=== PATIENT | female | born 1960 | race Caucasian/White ===

== ENCOUNTER 2021-05-04 13:57 | Outpatient (CLI) | payer MEDICAID ==
[~2021-05-04 13:57] MED LIST: AMLO5TAB4 PO; INSU100V9 SQ; SYRI-641
== END 2021-05-04 23:59 | disposition home or self-care (01) ==
LOC: CARD DIAG 13:57
PROVIDERS: ATTEND Internal Medicine Hematology
DX: I08.0 Rheumatic disorders of both mitral and aortic valves (principal)
CPT/HCPCS: 93306

== ENCOUNTER 2021-08-25 15:55 | Inpatient (IN) | payer MEDICAID ==
[~2021-08-25] VITALS: Ht 160 cm; Wt 88.2 kg
[2021-08-25] MEDS ORDERED: acetaminophen 325mg tablet PO STA (16:21)
[2021-08-25] MEDS ORDERED: normal saline 1000ML IV soln IV ONE (16:25)
[2021-08-25 16:45] LABS: BASOPHILS % (AUTO) 0.1 % (0-1); EOSINOPHILS % (AUTO) 0 % (0-6); HEMATOCRIT 45.9 % (35.0-45.0); HEMOGLOBIN 15.2 g/dl (12.0-16.0); LYMPHOCYTES # (AUTO) 0.2 X10'3 (1.1-4.8); LYMPHOCYTES % (AUTO) 4.3 % (21-51); MEAN CORPUSCULAR HEMOGLOBIN 25.8 PG (27.0-31.0); MEAN CORPUSCULAR HGB CONC 33.2 g/dL (33.0-36.5); MEAN CORPUSCULAR VOLUME 77.9 FL (78-98); MONOCYTES # (AUTO) 0.5 X10'3 (0-0.9); MONOCYTES % (AUTO) 9.9 % (2-12); NEUTROPHILS # (AUTO) 4.8 X10'3 (1.8-7.7); NEUTROPHILS % (AUTO) 85.7 % (42-75); PLATELET COUNT 246 X10'3 (140-440); RED BLOOD COUNT 5.89 X10'6 (4.20-5.60); RED CELL DISTRIBUTION WIDTH 13.9 % (11.5-14.5); WHITE BLOOD COUNT 5.6 X10'3 (4.5-11.0)
[2021-08-25 17:01] LABS: ALBUMIN 2.6 G/DL (3.4-5.0); ANION GAP 12 (8-16); BILIRUBIN,TOTAL 0.7 MG/DL (0.1-1.0); BLOOD UREA NITROGEN 50 MG/DL (7-18); CALCIUM 7.9 MG/DL (8.5-10.1); CHLORIDE 105 MMOL/L (99-107); CREATININE 1.35 MG/DL (0.40-0.90); GLUCOSE 212 MG/DL (70-104); POTASSIUM 4.8 MMOL/L (3.5-5.1); SODIUM 141 MMOL/L (135-145); TOTAL CARBON DIOXIDE 23.7 MMOL/L (24-32); TOTAL PROTEIN 7.2 G/DL (6.4-8.2); eGFR 40 ML/MIN
[2021-08-25 17:02] LABS: ALANINE AMINOTRANSFERASE 126 U/L (12-78); ALBUMIN/GLOBULIN RATIO 0.6 (1.1-1.5); ALKALINE PHOSPHATASE 246 IU/L (46-116); ASPARTATE AMINO TRANSFERASE 145 U/L (10-37)
[2021-08-25 17:05] LABS: MAGNESIUM 3.3 MG/DL (1.5-2.4)
[2021-08-25 17:11] LABS: D-DIMER 0.47 MG/L FEU (0-0.50)
--- NOTE | 2021-08-25 17:56 | NUR ---
DR. NICHOLAS AT BEDSIDE.
[2021-08-25] MEDS ORDERED: magnesium Cl slow-release 64mg tablet PO PRN (18:05)
[2021-08-25] MEDS ORDERED: PERFLUTREN PROTEIN-A MICROSPHR (Optison) 0.22 MG/ML 3ML VIAL IV ONE (18:05)
[2021-08-25] MEDS ORDERED: magnesium 4gm in 100ml NS 100 ML IV PRN (18:05)
[2021-08-25] MEDS ORDERED: ondansetron/PF 4mg/2ml inj IV PRN (18:05)
[2021-08-25] MEDS ORDERED: magnesium 2GM in 50ml NS 50 ML IV PRN (18:05)
[2021-08-25] MEDS ORDERED: potassium Cl 20 mEq SR tablet PO PRN ×2 (18:05)
[2021-08-25] MEDS ORDERED: morphine 2 MG/ML inj. syringe IV PRN (18:05)
[2021-08-25] MEDS ORDERED: potassium Cl 40MEQ/1/2NS 520ml 520 ML IV PRN ×2 (18:05)
[2021-08-25] MEDS ORDERED: acetaminophen 325mg tablet PO PRN (18:05)
[2021-08-25] MEDS ORDERED: glucagon, human recombinant 1mg kit SUBCUT PRN (18:10)
[2021-08-25] MEDS ORDERED: MESSAGE TO PHARMACY PO ONE (18:10)
[2021-08-25] MEDS ORDERED: dextrose 50%-water 50ml dispensing syringe IV PRN ×2 (18:10)
[2021-08-25] MEDS ORDERED: dextrose ORAL solution 15 GM/59 ML bottle PO PRN ×2 (18:10)
[2021-08-25] MEDS ORDERED: iohexol 350MG/ML 100ml bottle IV ONE (18:13)
[2021-08-25] MEDS ORDERED: albuterol 2.5 MG/3 ML nebule NEB PRN (18:15)
[2021-08-25] MEDS ORDERED: dexamethasone 4mg/ml inj IV ONE (18:35)
[2021-08-25] MEDS ORDERED: REMDESIVIR INJ 200 MG in normal saline 100ml IV soln 60 ML IV ONE (18:35)
[2021-08-25] MEDS ORDERED: LANTUS SQ (18:44)
[2021-08-25] MEDS ORDERED: ERTU5TAB PO (18:44)
[2021-08-25] MEDS ORDERED: LISI30TA4 PO (18:44)
[2021-08-25] MEDS: K and/or MAG REPLACEMENT MC SCH (20:00)
[2021-08-25] MEDS: dexamethasone 4mg/ml inj IV SCH (20:10)
[2021-08-25] MEDS: heparin, porcine 5000 units/ml vial SQ SCH (20:11)
[2021-08-25 20:33] LABS: HEMOGLOBIN A1C 7.7 % (4.5-6.2)
[2021-08-25 21:00] VITALS: BP 114/69
[2021-08-25] MEDS: insulin glargine (Lantus) pen - multi-dose SQ SCH (21:00)
[2021-08-25] MEDS: acetaminophen 325mg tablet PO PRN (23:55)
[2021-08-26 02:00] VITALS: BP 105/60
[2021-08-26 04:31] LABS: ALANINE AMINOTRANSFERASE 113 U/L (12-78); ALBUMIN 2.4 G/DL (3.4-5.0); ALBUMIN/GLOBULIN RATIO 0.6 (1.1-1.5); ALKALINE PHOSPHATASE 238 IU/L (46-116); ANION GAP 12 (8-16); ASPARTATE AMINO TRANSFERASE 109 U/L (10-37); BILIRUBIN,TOTAL 0.5 MG/DL (0.1-1.0); BLOOD UREA NITROGEN 41 MG/DL (7-18); BUN/CREATININE RATIO 42.3 (6.6-38.0); CALCIUM 7.6 MG/DL (8.5-10.1); CHLORIDE 107 MMOL/L (99-107); CHOL/HDL RATIO 2.6 (0.00-4.99); CHOLESTEROL 80 MG/DL (0-200); CREATININE 0.97 MG/DL (0.40-0.90); GLUCOSE 230 MG/DL (70-104); HDL CHOLESTEROL 31 MG/DL (35-60); LDL CHOLESTEROL 35 MG/DL (50-100); MAGNESIUM 3.1 MG/DL (1.5-2.4); POTASSIUM 4.6 MMOL/L (3.5-5.1); SODIUM 140 MMOL/L (135-145); TOTAL PROTEIN 6.7 G/DL (6.4-8.2); TRIGLYCERIDES 76 MG/DL (20-135); eGFR 58 ML/MIN
--- NOTE | 2021-08-26 06:28 | NUR ---
ADMITTED PATIENT TO 401 AT 2100 AND CHECKED HER BG REPORTED TO ME, WHILE IN THE ED HER BG WAS 212. PATIENT DID NOT MEET PROTOCOL, BG WAS 147. PATIENT ORIENTED AND ALERT, THOUGH FATIGUED. MEDICATED X1 WITH TYLENOL AND ZOFRAN THIS INFORMATION OFFICER. REPORT GIVEN TO NIHARIKA FELDER
[2021-08-26 07:38] VITALS: BP 122/73
[2021-08-26 08:11] LABS: BASOPHILS % (AUTO) 0.1 % (0-1); EOSINOPHILS % (AUTO) 0 % (0-6); HEMATOCRIT 45.7 % (35.0-45.0); HEMOGLOBIN 14.8 g/dl (12.0-16.0); LYMPHOCYTES # (AUTO) 0.2 X10'3 (1.1-4.8); LYMPHOCYTES % (AUTO) 4.5 % (21-51); MEAN CORPUSCULAR HEMOGLOBIN 25.6 PG (27.0-31.0); MEAN CORPUSCULAR HGB CONC 32.3 g/dL (33.0-36.5); MEAN CORPUSCULAR VOLUME 79.4 FL (78-98); MEAN PLATELET VOLUME 8.5 FL (7.4-10.4); MONOCYTES # (AUTO) 0.4 X10'3 (0-0.9); MONOCYTES % (AUTO) 7.4 % (2-12); NEUTROPHILS # (AUTO) 4.4 X10'3 (1.8-7.7); PLATELET COUNT 253 X10'3 (140-440); RED BLOOD COUNT 5.76 X10'6 (4.20-5.60); RED CELL DISTRIBUTION WIDTH 13.9 % (11.5-14.5)
[2021-08-26] MEDS: CefTRIAXone 2gm/D5W 50ml BAG 50 ML IV SCH (08:58)
[2021-08-26] MEDS: dexamethasone 4mg/ml inj IV SCH ×2 (08:58→21:55)
[2021-08-26] MEDS: FLU VACC QS2021-22(6MOS UP)/PF 60 MCG/0.5 ML SYRINGE IM ONE (08:59)
[2021-08-26] MEDS: heparin, porcine 5000 units/ml vial SQ SCH ×2 (08:59→21:56)
[2021-08-26] MEDS: pneumococcal 23-VAL P-sac vacc 25 mcg/0.5ml vial IMVAC ONE (09:01)
[2021-08-26] MEDS: K and/or MAG REPLACEMENT MC SCH ×2 (09:05→18:57)
--- NOTE | 2021-08-26 10:31 | NUR ---
Noted pt with T2DM with A1c 7.7%. Pt presented with c/o SOB and positive for COVID on admit, currently in airborne precautions. Pt would benefit from DM education once more stable. Will continue to follow. Addendum: 08/26/21 at [address] Amended: Links added.
[2021-08-26] MEDS: insulin Lispro (HumaLOG) vial - multi-dose SQ SCH ×2 (13:56→21:52)
[2021-08-26 15:59] VITALS: BP 103/68
[2021-08-26 16:46] LABS: ABG BASE EXCESS -2.9 mmol/L (-2.0-2.0); ABG HCO3 20.5 mmol/L (22.0-26.0); ABG OXYGEN SATURATION 90.4 % (94-97); ABG PO2 (T) 56.6 mmHg (75.0-100.0); ALLEN'S TEST POSITIVE; FLOW 15 L/min; FMetHb 0.2 % (0.0-1.5); FO2Hb 90.2 % (94-97); TOTAL HEMOGLOBIN 14.5 G/dl (12.0-16.0)
[2021-08-26] MEDS: lactobacillus rhamnosus 10,000 MMU CELLS/CAPSULE PO SCH (20:00)
[2021-08-26] MEDS: insulin glargine (Lantus) pen - multi-dose SQ SCH (21:53)
[2021-08-26] MEDS: REMDESIVIR 100 MG in NS 100ml IVPB IV SCH (21:54)
[2021-08-26 22:00] VITALS: BP 138/72
[2021-08-27 02:00] VITALS: BP 101/61
[2021-08-27 06:00] VITALS: BP 125/62
--- NOTE | 2021-08-27 06:52 | NUR ---
Patient in room [facility]TH[facility] 4017. I have received report from BRADFORD NOBLE and had the opportunity to ask questions and assume patient care.
[2021-08-27 07:45] LABS: BASOPHILS % (AUTO) 0.1 % (0-1); EOSINOPHILS % (AUTO) 0 % (0-6); HEMATOCRIT 43.1 % (35.0-45.0); HEMOGLOBIN 13.8 g/dl (12.0-16.0); LYMPHOCYTES # (AUTO) 0.2 X10'3 (1.1-4.8); MEAN CORPUSCULAR HEMOGLOBIN 25.5 PG (27.0-31.0); MEAN CORPUSCULAR VOLUME 79.6 FL (78-98); MEAN PLATELET VOLUME 8.5 FL (7.4-10.4); MONOCYTES # (AUTO) 0.4 X10'3 (0-0.9); MONOCYTES % (AUTO) 6.1 % (2-12); NEUTROPHILS # (AUTO) 5.4 X10'3 (1.8-7.7); NEUTROPHILS % (AUTO) 89.8 % (42-75); PLATELET COUNT 295 X10'3 (140-440); RED BLOOD COUNT 5.41 X10'6 (4.20-5.60)
[2021-08-27 07:52] LABS: ALANINE AMINOTRANSFERASE 78 U/L (12-78); ALBUMIN 2.2 G/DL (3.4-5.0); ALBUMIN/GLOBULIN RATIO 0.5 (1.1-1.5); ALKALINE PHOSPHATASE 235 IU/L (46-116); ANION GAP 9 (8-16); ASPARTATE AMINO TRANSFERASE 42 U/L (10-37); BILIRUBIN,TOTAL 0.4 MG/DL (0.1-1.0); BLOOD UREA NITROGEN 36 MG/DL (7-18); BUN/CREATININE RATIO 37.9 (6.6-38.0); CALCIUM 8.1 MG/DL (8.5-10.1); CHLORIDE 107 MMOL/L (99-107); CREATININE 0.95 MG/DL (0.40-0.90); GLUCOSE 297 MG/DL (70-104); MAGNESIUM 3.1 MG/DL (1.5-2.4); POTASSIUM 4.6 MMOL/L (3.5-5.1); SODIUM 137 MMOL/L (135-145); TOTAL CARBON DIOXIDE 20.7 MMOL/L (24-32); TOTAL PROTEIN 6.4 G/DL (6.4-8.2); eGFR 60 ML/MIN
[2021-08-27] MEDS: dexamethasone 4mg/ml inj IV SCH ×2 (07:54→21:02)
[2021-08-27] MEDS: CefTRIAXone 2gm/D5W 50ml BAG 50 ML IV SCH (07:54)
[2021-08-27] MEDS: heparin, porcine 5000 units/ml vial SQ SCH ×2 (07:55→21:01)
[2021-08-27] MEDS: lactobacillus rhamnosus 10,000 MMU CELLS/CAPSULE PO SCH ×2 (07:56→21:03)
[2021-08-27] MEDS: K and/or MAG REPLACEMENT MC SCH ×2 (08:00→20:00)
[2021-08-27] MEDS: acetaminophen 325mg tablet PO PRN ×3 (09:07→21:30)
[2021-08-27] MEDS: insulin Lispro (HumaLOG) vial - multi-dose SQ SCH ×3 (09:11→21:24)
[2021-08-27 10:00] VITALS: BP 131/60
[2021-08-27 14:00] VITALS: BP 131/65
[2021-08-27 18:00] VITALS: BP 132/69
--- NOTE | 2021-08-27 18:51 | NUR ---
Problems reprioritized. Patient report given, questions answered & plan of care reviewed with BRADFORD BISHOP.
[2021-08-27] MEDS: insulin glargine (Lantus) pen - multi-dose SQ SCH (21:23)
[2021-08-27 22:00] VITALS: BP 138/79
[2021-08-27] MEDS: REMDESIVIR 100 MG in NS 100ml IVPB IV SCH (23:27)
[2021-08-28 02:00] VITALS: BP 123/73
[2021-08-28] MEDS: acetaminophen 325mg tablet PO PRN ×3 (05:42→20:01)
--- NOTE | 2021-08-28 06:27 | NUR ---
Patient in room [facility]TH[facility] 4017. I have received report from Emmanuel FELDER and had the opportunity to ask questions and assume patient care.
[2021-08-28] MEDS: dexamethasone 4mg/ml inj IV SCH ×2 (07:03→19:57)
[2021-08-28] MEDS: lactobacillus rhamnosus 10,000 MMU CELLS/CAPSULE PO SCH ×2 (07:03→19:58)
[2021-08-28] MEDS: CefTRIAXone 2gm/D5W 50ml BAG 50 ML IV SCH (07:03)
[2021-08-28] MEDS: heparin, porcine 5000 units/ml vial SQ SCH ×2 (07:03→19:58)
[2021-08-28 07:34] LABS: BASOPHILS % (AUTO) 0 % (0-1); EOSINOPHILS % (AUTO) 0 % (0-6); HEMATOCRIT 40.9 % (35.0-45.0); HEMOGLOBIN 13.7 g/dl (12.0-16.0); LYMPHOCYTES # (AUTO) 0.2 X10'3 (1.1-4.8); MEAN CORPUSCULAR HEMOGLOBIN 25.9 PG (27.0-31.0); MEAN CORPUSCULAR HGB CONC 33.6 g/dL (33.0-36.5); MEAN CORPUSCULAR VOLUME 77.1 FL (78-98); MEAN PLATELET VOLUME 8.3 FL (7.4-10.4); MONOCYTES # (AUTO) 0.4 X10'3 (0-0.9); MONOCYTES % (AUTO) 5.3 % (2-12); NEUTROPHILS # (AUTO) 7.4 X10'3 (1.8-7.7); NEUTROPHILS % (AUTO) 91.7 % (42-75); PLATELET COUNT 340 X10'3 (140-440); RED CELL DISTRIBUTION WIDTH 13.7 % (11.5-14.5); WHITE BLOOD COUNT 8.1 X10'3 (4.5-11.0)
[2021-08-28 07:38] VITALS: BP 118/70
[2021-08-28 07:42] LABS: D-DIMER 0.51 MG/L FEU (0-0.50)
[2021-08-28] MEDS: K and/or MAG REPLACEMENT MC SCH ×2 (08:00→20:00)
[2021-08-28 08:06] LABS: ALANINE AMINOTRANSFERASE 71 U/L (12-78); ALBUMIN 2.2 G/DL (3.4-5.0); ALBUMIN/GLOBULIN RATIO 0.5 (1.1-1.5); ALKALINE PHOSPHATASE 266 IU/L (46-116); ANION GAP 11 (8-16); ASPARTATE AMINO TRANSFERASE 40 U/L (10-37); BILIRUBIN,TOTAL 0.5 MG/DL (0.1-1.0); BLOOD UREA NITROGEN 32 MG/DL (7-18); BUN/CREATININE RATIO 34.4 (6.6-38.0); C-REACTIVE PROTEIN 3.62 MG/DL (0.0-0.5); CALCIUM 7.9 MG/DL (8.5-10.1); CHLORIDE 107 MMOL/L (99-107); CREATININE 0.93 MG/DL (0.40-0.90); GLUCOSE 332 MG/DL (70-104); LACTATE DEHYDROGENASE 310 U/L (81-234); MAGNESIUM 2.7 MG/DL (1.5-2.4); PHOSPHORUS 3.6 MG/DL (2.3-4.5); POTASSIUM 4.8 MMOL/L (3.5-5.1); SODIUM 140 MMOL/L (135-145); TOTAL CARBON DIOXIDE 21.6 MMOL/L (24-32); TOTAL PROTEIN 6.3 G/DL (6.4-8.2); eGFR 61 ML/MIN
[2021-08-28] MEDS: insulin Lispro (HumaLOG) vial - multi-dose SQ SCH ×4 (08:53→20:39)
[2021-08-28 11:19] VITALS: BP 114/54
--- NOTE | 2021-08-28 13:52 | NUR ---
Initial: Pt admit DX COVID-19, PNA, ARDS, respiratory failure, severe hepatic steatosis, HTN, and DM per EMR. Hx T2DM A1C 7.7% not appropriate for ed at this time. PO ~42% avg carb controlled meals overall though 75% dinner last night partially meeting needs. ABRAM recommends Glucerna TIDWM for additional protein/kcals; MD notified. LBM 08/24; ABRAM d/w RN regarding routine bowel care if MD agreeable. Will continue to monitor. Rec: 1. continue carb controlled diet; encourage PO 2. Glucerna TIDWM; pending MD verification in EMR 3. routine bowel care 4. scaled wt this admit; subsequent weekly wts Addendum: 08/28/21 at [address] Amended: Links added.
--- NOTE | 2021-08-28 14:43 | NUR ---
Provided and educated on insentive spirometer. Patient sitting up in high back chair at this time.
--- NOTE | 2021-08-28 15:31 | NUR ---
Helped patient back to bed from sitting in chair. Respiratory had turned patient down to 13 liters on high flow salter but while ambulating she desaturated so i turned her back up to 15 liters.
--- NOTE | 2021-08-28 18:37 | NUR ---
Problems reprioritized. Patient report given, questions answered & plan of care reviewed with Jyothi FELDER.
[2021-08-28] MEDS: insulin glargine (Lantus) pen - multi-dose SQ SCH (20:38)
[2021-08-28] MEDS: REMDESIVIR 100 MG in NS 100ml IVPB IV SCH (20:42)
[2021-08-28 22:00] VITALS: BP 130/99
[2021-08-29 02:00] VITALS: BP 142/80
[2021-08-29] MEDS: acetaminophen 325mg tablet PO PRN (02:36)
[2021-08-29 06:00] VITALS: BP 134/75
--- NOTE | 2021-08-29 06:32 | NUR ---
Patient in room [facility]TH[facility] 4017. I have received report from SURG/PUBLICATION SPECIALIST and had the opportunity to ask questions and assume patient care.
[2021-08-29] MEDS: CefTRIAXone 2gm/D5W 50ml BAG 50 ML IV SCH (07:33)
[2021-08-29] MEDS: dexamethasone 4mg/ml inj IV SCH ×2 (07:35→19:19)
[2021-08-29] MEDS: lactobacillus rhamnosus 10,000 MMU CELLS/CAPSULE PO SCH ×2 (07:45→19:21)
[2021-08-29] MEDS: heparin, porcine 5000 units/ml vial SQ SCH ×2 (07:45→19:21)
[2021-08-29] MEDS: HYDROcodone/acetaminophen 5mg/325mg tablet PO PRN ×2 (07:47→15:58)
[2021-08-29 07:50] LABS: BASOPHILS % (AUTO) 0.1 % (0-1); EOSINOPHILS % (AUTO) 0 % (0-6); HEMATOCRIT 41.6 % (35.0-45.0); HEMOGLOBIN 13.6 g/dl (12.0-16.0); LYMPHOCYTES # (AUTO) 0.3 X10'3 (1.1-4.8); LYMPHOCYTES % (AUTO) 3.1 % (21-51); MEAN CORPUSCULAR HEMOGLOBIN 25.5 PG (27.0-31.0); MEAN CORPUSCULAR HGB CONC 32.7 g/dL (33.0-36.5); MEAN CORPUSCULAR VOLUME 78.2 FL (78-98); MEAN PLATELET VOLUME 8.3 FL (7.4-10.4); MONOCYTES # (AUTO) 0.5 X10'3 (0-0.9); MONOCYTES % (AUTO) 5.1 % (2-12); NEUTROPHILS # (AUTO) 9.3 X10'3 (1.8-7.7); NEUTROPHILS % (AUTO) 91.7 % (42-75); PLATELET COUNT 381 X10'3 (140-440); RED BLOOD COUNT 5.33 X10'6 (4.20-5.60); RED CELL DISTRIBUTION WIDTH 13.5 % (11.5-14.5); WHITE BLOOD COUNT 10.2 X10'3 (4.5-11.0)
[2021-08-29] MEDS: K and/or MAG REPLACEMENT MC SCH ×2 (08:00→19:31)
[2021-08-29 08:22] LABS: ALANINE AMINOTRANSFERASE 92 U/L (12-78); ALBUMIN 2.3 G/DL (3.4-5.0); ALBUMIN/GLOBULIN RATIO 0.6 (1.1-1.5); ALKALINE PHOSPHATASE 295 IU/L (46-116); ANION GAP 10 (8-16); ASPARTATE AMINO TRANSFERASE 71 U/L (10-37); BILIRUBIN,TOTAL 0.5 MG/DL (0.1-1.0); BLOOD UREA NITROGEN 26 MG/DL (7-18); BUN/CREATININE RATIO 35.6 (6.6-38.0); C-REACTIVE PROTEIN 1.86 MG/DL (0.0-0.5); CHLORIDE 109 MMOL/L (99-107); CREATININE 0.73 MG/DL (0.40-0.90); GLUCOSE 147 MG/DL (70-104); LACTATE DEHYDROGENASE 520 U/L (81-234); MAGNESIUM 2.6 MG/DL (1.5-2.4); PHOSPHORUS 3.3 MG/DL (2.3-4.5); POTASSIUM 4.7 MMOL/L (3.5-5.1); SODIUM 142 MMOL/L (135-145); TOTAL CARBON DIOXIDE 22.6 MMOL/L (24-32); TOTAL PROTEIN 6.2 G/DL (6.4-8.2); eGFR 81 ML/MIN
[2021-08-29 09:44] LABS: D-DIMER 0.35 MG/L FEU (0-0.50)
[2021-08-29 10:00] VITALS: BP 125/78
[2021-08-29] MEDS: insulin Lispro (HumaLOG) vial - multi-dose SQ SCH ×4 (10:46→23:05)
[2021-08-29 11:45] LABS: GAMMA GLUTAMLY TRANSPEPTIDASE 261 IU/L (0-60); HEP B CORE AB, TOT Negative (Negative); HEPATITIS C ANTIBODY <0.1 s/co ratio (0.0-0.9)
[2021-08-29 14:00] VITALS: BP 124/71
--- NOTE | 2021-08-29 15:48 | NUR ---
Page Sent PAGER ID: [phone] MESSAGE: KIMBERLYN 8540-RE: JAYDEN DUNN [id number]...PT REPORTING FACIAL MAXILLARY/JAW PAIN...[employer] MINIMAL HELP
[2021-08-29 18:00] VITALS: BP 129/78
--- NOTE | 2021-08-29 18:30 | NUR ---
Problems reprioritized. Patient report given, questions answered & plan of care reviewed with BRADFORD RUSH.
[2021-08-29] MEDS: REMDESIVIR 100 MG in NS 100ml IVPB IV SCH (19:21)
[2021-08-29] MEDS: insulin glargine (Lantus) pen - multi-dose SQ SCH (23:07)
[2021-08-30] MEDS: acetaminophen 325mg tablet PO PRN (02:40)
--- NOTE | 2021-08-30 06:29 | NUR ---
Problems reprioritized. Patient report given, questions answered & plan of care reviewed with Lj.
[2021-08-30 07:13] VITALS: BP 155/72
[2021-08-30] MEDS: K and/or MAG REPLACEMENT MC SCH ×2 (08:00→20:00)
[2021-08-30] MEDS: CefTRIAXone 2gm/D5W 50ml BAG 50 ML IV SCH (08:11)
[2021-08-30] MEDS: dexamethasone 4mg/ml inj IV SCH ×2 (08:11→19:33)
[2021-08-30] MEDS: lactobacillus rhamnosus 10,000 MMU CELLS/CAPSULE PO SCH ×2 (08:11→19:34)
[2021-08-30] MEDS: heparin, porcine 5000 units/ml vial SQ SCH ×2 (08:12→19:35)
[2021-08-30] MEDS: insulin Lispro (HumaLOG) vial - multi-dose SQ SCH ×3 (08:15→21:02)
[2021-08-30 08:42] LABS: BASOPHILS % (AUTO) 0.1 % (0-1); EOSINOPHILS % (AUTO) 0 % (0-6); HEMOGLOBIN 14.5 g/dl (12.0-16.0); LYMPHOCYTES # (AUTO) 0.4 X10'3 (1.1-4.8); LYMPHOCYTES % (AUTO) 2.3 % (21-51); MEAN CORPUSCULAR HEMOGLOBIN 25.4 PG (27.0-31.0); MEAN CORPUSCULAR HGB CONC 32.3 g/dL (33.0-36.5); MEAN CORPUSCULAR VOLUME 78.5 FL (78-98); MEAN PLATELET VOLUME 8.1 FL (7.4-10.4); MONOCYTES # (AUTO) 0.8 X10'3 (0-0.9); MONOCYTES % (AUTO) 5.1 % (2-12); NEUTROPHILS # (AUTO) 14.3 X10'3 (1.8-7.7); NEUTROPHILS % (AUTO) 92.5 % (42-75); PLATELET COUNT 508 X10'3 (140-440); RED BLOOD COUNT 5.73 X10'6 (4.20-5.60); RED CELL DISTRIBUTION WIDTH 13.6 % (11.5-14.5); WHITE BLOOD COUNT 15.5 X10'3 (4.5-11.0)
[2021-08-30 08:52] LABS: ALANINE AMINOTRANSFERASE 95 U/L (12-78); ALBUMIN 2.5 G/DL (3.4-5.0); ALBUMIN/GLOBULIN RATIO 0.6 (1.1-1.5); ALKALINE PHOSPHATASE 319 IU/L (46-116); ANION GAP 8 (8-16); ASPARTATE AMINO TRANSFERASE 33 U/L (10-37); BILIRUBIN,TOTAL 0.6 MG/DL (0.1-1.0); BLOOD UREA NITROGEN 25 MG/DL (7-18); BUN/CREATININE RATIO 32.9 (6.6-38.0); C-REACTIVE PROTEIN 1.22 MG/DL (0.0-0.5); CALCIUM 8.1 MG/DL (8.5-10.1); CHLORIDE 103 MMOL/L (99-107); CREATININE 0.76 MG/DL (0.40-0.90); GLUCOSE 218 MG/DL (70-104); LACTATE DEHYDROGENASE 277 U/L (81-234); MAGNESIUM 2.5 MG/DL (1.5-2.4); PHOSPHORUS 3.3 MG/DL (2.3-4.5); POTASSIUM 4.2 MMOL/L (3.5-5.1); SODIUM 134 MMOL/L (135-145); TOTAL CARBON DIOXIDE 22.6 MMOL/L (24-32); TOTAL PROTEIN 6.8 G/DL (6.4-8.2); eGFR 77 ML/MIN
[2021-08-30 08:54] LABS: D-DIMER 0.36 MG/L FEU (0-0.50)
[2021-08-30 11:15] VITALS: BP 114/70
[2021-08-30 15:55] VITALS: BP 131/78
[2021-08-30 18:00] VITALS: BP 138/84
[2021-08-30] MEDS: insulin glargine (Lantus) pen - multi-dose SQ SCH (21:01)
[2021-08-30 22:00] VITALS: BP 121/85
[2021-08-31] MEDS: acetaminophen 325mg tablet PO PRN (01:27)
[2021-08-31 06:46] VITALS: BP 126/73
[2021-08-31 08:00] LABS: D-DIMER 0.25 MG/L FEU (0-0.50)
[2021-08-31] MEDS: K and/or MAG REPLACEMENT MC SCH ×2 (08:00→20:00)
[2021-08-31] MEDS: dexamethasone 4mg/ml inj IV SCH ×2 (08:29→20:24)
[2021-08-31] MEDS: CefTRIAXone 2gm/D5W 50ml BAG 50 ML IV SCH (08:30)
[2021-08-31] MEDS: heparin, porcine 5000 units/ml vial SQ SCH ×2 (08:30→20:23)
[2021-08-31] MEDS: lactobacillus rhamnosus 10,000 MMU CELLS/CAPSULE PO SCH ×2 (08:30→20:24)
[2021-08-31] MEDS: insulin Lispro (HumaLOG) vial - multi-dose SQ SCH ×3 (08:37→19:20)
[2021-08-31 08:41] LABS: C-REACTIVE PROTEIN 1.04 MG/DL (0.0-0.5); MAGNESIUM 2.6 MG/DL (1.5-2.4); PHOSPHORUS 3.6 MG/DL (2.3-4.5)
[2021-08-31 10:51] VITALS: BP 139/79
--- NOTE | 2021-08-31 11:56 | NUR ---
DM consult: A1C 7.7 continues on airborne precautions. Written DM education w/ RD contact info mailed to Pt's address provided in EMR. Addendum: 08/31/21 at [address] Amended: Links added.
[2021-08-31 15:31] VITALS: BP 141/72
[2021-08-31 18:00] VITALS: BP 152/93
[2021-08-31] MEDS: NUT.TX.GLUC.INTOLER,LAC-FR,SOY (GLUCERNA) 237 ML PO SCH (18:00)
--- NOTE | 2021-08-31 18:36 | NUR ---
Patient in room [facility]TH[facility] 4017. I have received report from Lj FELDER and had the opportunity to ask questions and assume patient care.
[2021-08-31] MEDS: insulin glargine (Lantus) pen - multi-dose SQ SCH (21:18)
[2021-08-31 22:00] VITALS: BP 155/92
[2021-09-01] MEDS: acetaminophen 325mg tablet PO PRN (00:33)
--- NOTE | 2021-09-01 00:42 | NUR ---
Patient feeling shakey and has a headache. Patient states, "Your giving me too much insulin." Blood sugar taken, results 138. Educated on insulin and our protocol. Patient resistive to all education and very upset with nursing staff.
[2021-09-01 02:00] VITALS: BP 121/79
--- NOTE | 2021-09-01 03:00 | NUR ---
I have reviewed and agree with all medications administered and interventions performed by Student Shantal
[2021-09-01 06:00] VITALS: BP 133/73
--- NOTE | 2021-09-01 06:41 | NUR ---
Problems reprioritized. Patient report given, questions answered & plan of care reviewed with Silvia FELDER.
--- NOTE | 2021-09-01 07:03 | NUR ---
Patient in room [facility]TH[facility] 4017. I have received report from Love FELDER and had the opportunity to ask questions and assume patient care.
[2021-09-01] MEDS: K and/or MAG REPLACEMENT MC SCH ×2 (08:00→19:23)
[2021-09-01] MEDS: NUT.TX.GLUC.INTOLER,LAC-FR,SOY (GLUCERNA) 237 ML PO SCH ×3 (08:00→18:32)
[2021-09-01] MEDS: heparin, porcine 5000 units/ml vial SQ SCH ×2 (08:27→19:22)
[2021-09-01] MEDS: CefTRIAXone 2gm/D5W 50ml BAG 50 ML IV SCH (08:27)
[2021-09-01] MEDS: dexamethasone 4mg/ml inj IV SCH ×2 (08:28→19:22)
[2021-09-01] MEDS: lactobacillus rhamnosus 10,000 MMU CELLS/CAPSULE PO SCH ×2 (08:29→19:22)
[2021-09-01] MEDS: insulin Lispro (HumaLOG) vial - multi-dose SQ SCH ×4 (08:59→21:19)
--- NOTE | 2021-09-01 09:02 | NUR ---
Breakfast: Patient ate 37 grams carbs and blood glucose of 225, Level 6 would require 26u Humalog, but despite diabetic and hyper/hypoglycemic education, pt refused full Humalog dose, stating she would only agree to 14u for the blood glucose of 225. [employer] dynamics consultant aware. aware. Will continue to monitor.
[2021-09-01 09:37] LABS: D-DIMER 0.29 MG/L FEU (0-0.50)
[2021-09-01 09:59] LABS: C-REACTIVE PROTEIN 0.75 MG/DL (0.0-0.5); MAGNESIUM 2.3 MG/DL (1.5-2.4); PHOSPHORUS 3.8 MG/DL (2.3-4.5)
[2021-09-01 10:00] VITALS: BP 145/79
--- NOTE | 2021-09-01 13:52 | NUR ---
Lunch: Patient ate 56 grams carbs and blood glucose of 261, but despite diabetic and hyper/hypoglycemic education, pt refused full Humalog dose, stating she would only agree to 18u for the blood glucose of 261. Pt states "I know my body and I don't want all that Humalog". public health inspector aware. MD aware. Will continue to monitor.
[2021-09-01 14:00] VITALS: BP 128/91
[2021-09-01 18:00] VITALS: BP 146/87
--- NOTE | 2021-09-01 18:16 | NUR ---
Problems reprioritized. Patient report given, questions answered & plan of care reviewed with Love FELDER.
--- NOTE | 2021-09-01 18:17 | NUR ---
Patient in room [facility]TH[facility] 4017. I have received report from Silvia FELDER and had the opportunity to ask questions and assume patient care.
--- NOTE | 2021-09-01 18:35 | NUR ---
Patients dinner blood sugar 276 and ate 39 carbs, should receive 32 units of Humalog. Patient refusing full dose and says she will only take 15 units. Sent page to .
[2021-09-01] MEDS ORDERED: insulin Lispro (HumaLOG) vial - multi-dose SQ ONE (19:15)
[2021-09-01] MEDS: insulin glargine (Lantus) pen - multi-dose SQ SCH (21:18)
[2021-09-01 22:00] VITALS: BP 155/101
[2021-09-02] MEDS: acetaminophen 325mg tablet PO PRN ×3 (00:53→21:38)
[2021-09-02 02:00] VITALS: BP 136/84
[2021-09-02 06:00] VITALS: BP 132/75
--- NOTE | 2021-09-02 06:30 | NUR ---
Patient in room [facility]TH[facility] 4017. I have received report from Love FELDER and had the opportunity to ask questions and assume patient care.
--- NOTE | 2021-09-02 06:35 | NUR ---
Problems reprioritized. Patient report given, questions answered & plan of care reviewed with Samantha FELDER.
[2021-09-02] MEDS: lactobacillus rhamnosus 10,000 MMU CELLS/CAPSULE PO SCH ×2 (07:39→19:46)
[2021-09-02] MEDS: dexamethasone 4mg/ml inj IV SCH ×2 (07:39→19:47)
[2021-09-02] MEDS: CefTRIAXone 2gm/D5W 50ml BAG 50 ML IV SCH (07:39)
[2021-09-02] MEDS: heparin, porcine 5000 units/ml vial SQ SCH ×2 (07:45→19:46)
--- NOTE | 2021-09-02 07:58 | NUR ---
Patient requested not to get the flu shot and pneumococcal vaccine today as she said "I just feel crappy today!" Patient applied warm towel on her face while I was in her room but she removed her oxygen nasal cannula. Patient's O2 sat dropped as low as 81%, patient was advised not to do it but to keep her oxygen on all the time. Assisted patient in reapplying nasal cannula back to her nostrils, she verbalized understanding of instruction not to remove her oxygen nasal cannula to prevent low O2 sat level.
[2021-09-02] MEDS: K and/or MAG REPLACEMENT MC SCH ×2 (08:00→19:47)
[2021-09-02] MEDS: NUT.TX.GLUC.INTOLER,LAC-FR,SOY (GLUCERNA) 237 ML PO SCH ×3 (08:00→18:44)
[2021-09-02] MEDS: insulin Lispro (HumaLOG) vial - multi-dose SQ SCH ×4 (09:19→21:33)
--- NOTE | 2021-09-02 09:19 | NUR ---
Patient did not want to received 20 units of Humalog for her blood sugar of 159 mg/dl. She only permitted me to give her 13 units of Humalog. She states "Anything over 13 units, I will refuse it. I told her were going to address this to the doctor when he makes round.
[2021-09-02 10:00] VITALS: BP 125/75
[2021-09-02 11:38] LABS: BASOPHILS % (AUTO) 0.1 % (0-1); EOSINOPHILS % (AUTO) 0 % (0-6); HEMATOCRIT 41.3 % (35.0-45.0); HEMOGLOBIN 13.5 g/dl (12.0-16.0); LYMPHOCYTES # (AUTO) 0.2 X10'3 (1.1-4.8); LYMPHOCYTES % (AUTO) 1.3 % (21-51); MEAN CORPUSCULAR HEMOGLOBIN 25.6 PG (27.0-31.0); MEAN CORPUSCULAR HGB CONC 32.7 g/dL (33.0-36.5); MEAN CORPUSCULAR VOLUME 78.4 FL (78-98); MEAN PLATELET VOLUME 7.7 FL (7.4-10.4); MONOCYTES # (AUTO) 0.4 X10'3 (0-0.9); MONOCYTES % (AUTO) 2.8 % (2-12); NEUTROPHILS # (AUTO) 14.3 X10'3 (1.8-7.7); NEUTROPHILS % (AUTO) 95.8 % (42-75); PLATELET COUNT 398 X10'3 (140-440); RED BLOOD COUNT 5.27 X10'6 (4.20-5.60); RED CELL DISTRIBUTION WIDTH 13.6 % (11.5-14.5); WHITE BLOOD COUNT 14.9 X10'3 (4.5-11.0)
--- NOTE | 2021-09-02 11:47 | NUR ---
Reassessment: Pt with significant improvement in PO intake documented with mostly 75-100% PO intake since RD last assessment 08/28. Glucerna approved in EMR, pt documented with 0% PO intake first ONS. Recommend continuing with Glucerna to monitor further acceptance before discontinuing. LBM 09/01. Will continue to follow. Recommendations: 1. Continue carb controlled diet 2. Glucerna TIDWM; possibly not indicated if pt continues eating well 3. Routine bowel care 4. Scaled wt this admit; subsequent weekly wts Addendum: 09/02/21 at [address] Amended: Links added.
[2021-09-02 11:54] LABS: D-DIMER 0.26 MG/L FEU (0-0.50)
[2021-09-02 12:04] LABS: ALANINE AMINOTRANSFERASE 51 U/L (12-78); ALBUMIN/GLOBULIN RATIO 0.5 (1.1-1.5); ALKALINE PHOSPHATASE 211 IU/L (46-116); ANION GAP 12 (8-16); ASPARTATE AMINO TRANSFERASE 24 U/L (10-37); BILIRUBIN,TOTAL 0.5 MG/DL (0.1-1.0); BLOOD UREA NITROGEN 25 MG/DL (7-18); BUN/CREATININE RATIO 30.5 (6.6-38.0); C-REACTIVE PROTEIN 0.37 MG/DL (0.0-0.5); CALCIUM 7.6 MG/DL (8.5-10.1); CHLORIDE 102 MMOL/L (99-107); CREATININE 0.82 MG/DL (0.40-0.90); GLUCOSE 287 MG/DL (70-104); MAGNESIUM 2.2 MG/DL (1.5-2.4); PHOSPHORUS 3.6 MG/DL (2.3-4.5); POTASSIUM 4.9 MMOL/L (3.5-5.1); SODIUM 135 MMOL/L (135-145); TOTAL CARBON DIOXIDE 21.4 MMOL/L (24-32); eGFR 71 ML/MIN
[2021-09-02] MEDS: HYDROcodone/acetaminophen 5mg/325mg tablet PO PRN (12:51)
[2021-09-02 14:00] VITALS: BP 133/81
--- NOTE | 2021-09-02 15:15 | NUR ---
Dr. Burris made rounds. I let him know about the patient requesting not to get insulin >[address] Burris talked to the patient about this and explained the importance of following the hyperglycemia/insulin protocol. Patient was reluctant initially then eventually agreed to have the nurse dose her insulin according to our hospital protocol.
[2021-09-02 18:00] VITALS: BP 151/90
--- NOTE | 2021-09-02 18:15 | NUR ---
Problems reprioritized. Patient report given, questions answered & plan of care reviewed with Love FELDER.
--- NOTE | 2021-09-02 18:28 | NUR ---
Patient in room [facility]TH[facility] 4017. I have received report from Samantha FELDER and had the opportunity to ask questions and assume patient care.
[2021-09-02] MEDS: insulin glargine (Lantus) pen - multi-dose SQ SCH (21:32)
[2021-09-02 22:00] VITALS: BP 149/87
[2021-09-03 02:00] VITALS: BP 158/86
[2021-09-03] MEDS: HYDROcodone/acetaminophen 5mg/325mg tablet PO PRN ×3 (05:43→19:46)
[2021-09-03 06:00] VITALS: BP 129/80
--- NOTE | 2021-09-03 06:26 | NUR ---
Problems reprioritized. Patient report given, questions answered & plan of care reviewed with Leonor FELDER.
--- NOTE | 2021-09-03 06:47 | NUR ---
Patient in room [facility]TH[facility] 4017. I have received report from BRADFORD CHIN and had the opportunity to ask questions and assume patient care.
[2021-09-03] MEDS: NUT.TX.GLUC.INTOLER,LAC-FR,SOY (GLUCERNA) 237 ML PO SCH ×3 (08:00→18:02)
[2021-09-03] MEDS: K and/or MAG REPLACEMENT MC SCH ×2 (08:00→20:00)
[2021-09-03 09:06] LABS: D-DIMER 0.24 MG/L FEU (0-0.50)
[2021-09-03 09:10] LABS: BASOPHILS # (AUTO) 0.1 X10'3 (0-0.2); BASOPHILS % (AUTO) 0.5 % (0-1); EOSINOPHILS % (AUTO) 0.1 % (0-6); HEMOGLOBIN 13.9 g/dl (12.0-16.0); LYMPHOCYTES # (AUTO) 0.3 X10'3 (1.1-4.8); LYMPHOCYTES % (AUTO) 1.6 % (21-51); MEAN CORPUSCULAR HEMOGLOBIN 25.3 PG (27.0-31.0); MEAN CORPUSCULAR HGB CONC 32.2 g/dL (33.0-36.5); MEAN CORPUSCULAR VOLUME 78.6 FL (78-98); MEAN PLATELET VOLUME 7.6 FL (7.4-10.4); MONOCYTES # (AUTO) 0.7 X10'3 (0-0.9); MONOCYTES % (AUTO) 4.4 % (2-12); NEUTROPHILS # (AUTO) 14.6 X10'3 (1.8-7.7); NEUTROPHILS % (AUTO) 93.4 % (42-75); PLATELET COUNT 427 X10'3 (140-440); RED BLOOD COUNT 5.47 X10'6 (4.20-5.60); RED CELL DISTRIBUTION WIDTH 13.5 % (11.5-14.5); WHITE BLOOD COUNT 15.7 X10'3 (4.5-11.0)
[2021-09-03 09:18] LABS: ALANINE AMINOTRANSFERASE 68 U/L (12-78); ALBUMIN 2.2 G/DL (3.4-5.0); ALBUMIN/GLOBULIN RATIO 0.5 (1.1-1.5); ALKALINE PHOSPHATASE 226 IU/L (46-116); ANION GAP 8 (8-16); ASPARTATE AMINO TRANSFERASE 42 U/L (10-37); BILIRUBIN,TOTAL 0.6 MG/DL (0.1-1.0); BLOOD UREA NITROGEN 22 MG/DL (7-18); BUN/CREATININE RATIO 29.7 (6.6-38.0); CALCIUM 8.2 MG/DL (8.5-10.1); CHLORIDE 104 MMOL/L (99-107); CREATININE 0.74 MG/DL (0.40-0.90); GLUCOSE 178 MG/DL (70-104); LACTATE DEHYDROGENASE 299 U/L (81-234); MAGNESIUM 2.4 MG/DL (1.5-2.4); PHOSPHORUS 4.3 MG/DL (2.3-4.5); POTASSIUM 4.6 MMOL/L (3.5-5.1); SODIUM 136 MMOL/L (135-145); TOTAL CARBON DIOXIDE 23.9 MMOL/L (24-32); TOTAL PROTEIN 6.3 G/DL (6.4-8.2); eGFR 80 ML/MIN
[2021-09-03 09:24] LABS: C-REACTIVE PROTEIN 0.83 MG/DL (0.0-0.5)
[2021-09-03] MEDS: CefTRIAXone 2gm/D5W 50ml BAG 50 ML IV SCH (09:29)
[2021-09-03] MEDS: heparin, porcine 5000 units/ml vial SQ SCH ×2 (09:30→19:44)
[2021-09-03] MEDS: lactobacillus rhamnosus 10,000 MMU CELLS/CAPSULE PO SCH ×2 (09:30→19:45)
[2021-09-03] MEDS: dexamethasone 4mg/ml inj IV SCH ×2 (09:30→19:45)
[2021-09-03] MEDS: insulin Lispro (HumaLOG) vial - multi-dose SQ SCH ×4 (09:56→21:00)
[2021-09-03 10:00] VITALS: BP 119/78
[2021-09-03 18:00] VITALS: BP 142/82
--- NOTE | 2021-09-03 18:32 | NUR ---
Problems reprioritized. Patient report given, questions answered & plan of care reviewed with BRADFORD BAIG.
[2021-09-03] MEDS: insulin glargine (Lantus) pen - multi-dose SQ SCH (20:59)
[2021-09-03 22:00] VITALS: BP 151/80
[2021-09-04 02:00] VITALS: BP 154/83
[2021-09-04] MEDS: acetaminophen 325mg tablet PO PRN (03:23)
[2021-09-04 06:00] VITALS: BP 151/71
--- NOTE | 2021-09-04 06:29 | NUR ---
Problems reprioritized. Patient report given, questions answered & plan of care reviewed with BRADFORD DIAZ.
--- NOTE | 2021-09-04 06:29 | NUR ---
Patient in room [facility]TH[facility] 4017. I have received report from BRADFORD BAIG and had the opportunity to ask questions and assume patient care.
[2021-09-04 07:14] LABS: BASOPHILS % (AUTO) 0.2 % (0-1); EOSINOPHILS % (AUTO) 0 % (0-6); HEMATOCRIT 40.5 % (35.0-45.0); HEMOGLOBIN 13.5 g/dl (12.0-16.0); LYMPHOCYTES # (AUTO) 0.2 X10'3 (1.1-4.8); LYMPHOCYTES % (AUTO) 1.4 % (21-51); MEAN CORPUSCULAR HEMOGLOBIN 25.9 PG (27.0-31.0); MEAN CORPUSCULAR HGB CONC 33.3 g/dL (33.0-36.5); MEAN CORPUSCULAR VOLUME 77.9 FL (78-98); MEAN PLATELET VOLUME 7.7 FL (7.4-10.4); MONOCYTES # (AUTO) 0.7 X10'3 (0-0.9); MONOCYTES % (AUTO) 4.5 % (2-12); NEUTROPHILS # (AUTO) 13.8 X10'3 (1.8-7.7); NEUTROPHILS % (AUTO) 93.9 % (42-75); PLATELET COUNT 340 X10'3 (140-440); RED CELL DISTRIBUTION WIDTH 13.6 % (11.5-14.5); WHITE BLOOD COUNT 14.7 X10'3 (4.5-11.0)
[2021-09-04 07:22] LABS: D-DIMER < 0.19 MG/L FEU (0-0.50)
[2021-09-04] MEDS: CefTRIAXone 2gm/D5W 50ml BAG 50 ML IV SCH (07:37)
[2021-09-04] MEDS: dexamethasone 4mg/ml inj IV SCH ×2 (07:37→20:52)
[2021-09-04] MEDS: lactobacillus rhamnosus 10,000 MMU CELLS/CAPSULE PO SCH ×2 (07:37→20:52)
[2021-09-04] MEDS: heparin, porcine 5000 units/ml vial SQ SCH ×2 (07:38→20:52)
[2021-09-04] MEDS: K and/or MAG REPLACEMENT MC SCH ×2 (08:00→20:00)
[2021-09-04 08:05] LABS: ALANINE AMINOTRANSFERASE 75 U/L (12-78); ALBUMIN 2.1 G/DL (3.4-5.0); ALBUMIN/GLOBULIN RATIO 0.5 (1.1-1.5); ALKALINE PHOSPHATASE 220 IU/L (46-116); ANION GAP 10 (8-16); ASPARTATE AMINO TRANSFERASE 24 U/L (10-37); BILIRUBIN,TOTAL 0.4 MG/DL (0.1-1.0); BLOOD UREA NITROGEN 26 MG/DL (7-18); C-REACTIVE PROTEIN 1.08 MG/DL (0.0-0.5); CALCIUM 8.5 MG/DL (8.5-10.1); CHLORIDE 104 MMOL/L (99-107); CREATININE 0.65 MG/DL (0.40-0.90); GLUCOSE 220 MG/DL (70-104); LACTATE DEHYDROGENASE 284 U/L (81-234); MAGNESIUM 2.4 MG/DL (1.5-2.4); PHOSPHORUS 4.8 MG/DL (2.3-4.5); POTASSIUM 5.1 MMOL/L (3.5-5.1); SODIUM 136 MMOL/L (135-145); TOTAL PROTEIN 6.1 G/DL (6.4-8.2); eGFR > 90 ML/MIN
[2021-09-04] MEDS: NUT.TX.GLUC.INTOLER,LAC-FR,SOY (GLUCERNA) 237 ML PO SCH ×3 (08:49→17:58)
[2021-09-04] MEDS: HYDROcodone/acetaminophen 5mg/325mg tablet PO PRN ×2 (08:53→18:47)
[2021-09-04] MEDS: insulin Lispro (HumaLOG) vial - multi-dose SQ SCH ×3 (08:58→18:42)
[2021-09-04 10:00] VITALS: BP 157/76
[2021-09-04 14:00] VITALS: BP 146/79
[2021-09-04 18:00] VITALS: BP 157/76
--- NOTE | 2021-09-04 18:10 | NUR ---
Problems reprioritized. Patient report given, questions answered & plan of care reviewed with BRADFORD BAIG.
--- NOTE | 2021-09-04 18:23 | NUR ---
Patient in room [facility]TH[facility] 4017. I have received report from BRADFORD DIAZ and had the opportunity to ask questions and assume patient care.
[2021-09-04] MEDS: insulin glargine (Lantus) pen - multi-dose SQ SCH (20:47)
[2021-09-04] MEDS ORDERED: morphine 2 MG/ML inj. syringe IV PRN (21:05)
[2021-09-04 22:00] VITALS: BP 152/82
[2021-09-05] MEDS: HYDROcodone/acetaminophen 5mg/325mg tablet PO PRN ×3 (00:50→17:27)
[2021-09-05 02:00] VITALS: BP 129/72
[2021-09-05 06:00] VITALS: BP 145/83
--- NOTE | 2021-09-05 06:08 | NUR ---
Problems reprioritized. Patient report given, questions answered & plan of care reviewed with BRADFORD DIAZ.
--- NOTE | 2021-09-05 06:17 | NUR ---
Patient in room [facility]TH[facility] 4017. I have received report from BRADFORD BAIG and had the opportunity to ask questions and assume patient care.
[2021-09-05] MEDS: dexamethasone 4mg/ml inj IV SCH (07:15)
[2021-09-05] MEDS: lactobacillus rhamnosus 10,000 MMU CELLS/CAPSULE PO SCH (07:15)
[2021-09-05] MEDS: heparin, porcine 5000 units/ml vial SQ SCH (07:16)
[2021-09-05 07:57] LABS: BASOPHILS % (AUTO) 0.3 % (0-1); EOSINOPHILS % (AUTO) 0.1 % (0-6); HEMOGLOBIN 13.8 g/dl (12.0-16.0); LYMPHOCYTES # (AUTO) 0.3 X10'3 (1.1-4.8); LYMPHOCYTES % (AUTO) 1.9 % (21-51); MEAN CORPUSCULAR HEMOGLOBIN 25.5 PG (27.0-31.0); MEAN CORPUSCULAR HGB CONC 32.8 g/dL (33.0-36.5); MEAN CORPUSCULAR VOLUME 77.8 FL (78-98); MEAN PLATELET VOLUME 7.2 FL (7.4-10.4); MONOCYTES # (AUTO) 0.7 X10'3 (0-0.9); MONOCYTES % (AUTO) 4.1 % (2-12); NEUTROPHILS # (AUTO) 15.8 X10'3 (1.8-7.7); NEUTROPHILS % (AUTO) 93.6 % (42-75); PLATELET COUNT 341 X10'3 (140-440); RED BLOOD COUNT 5.39 X10'6 (4.20-5.60); RED CELL DISTRIBUTION WIDTH 13.9 % (11.5-14.5); WHITE BLOOD COUNT 16.9 X10'3 (4.5-11.0)
[2021-09-05] MEDS: K and/or MAG REPLACEMENT MC SCH (08:00)
[2021-09-05] MEDS: NUT.TX.GLUC.INTOLER,LAC-FR,SOY (GLUCERNA) 237 ML PO SCH ×3 (08:00→18:01)
[2021-09-05 08:39] LABS: ALANINE AMINOTRANSFERASE 100 U/L (12-78); ALBUMIN 2.1 G/DL (3.4-5.0); ALBUMIN/GLOBULIN RATIO 0.5 (1.1-1.5); ALKALINE PHOSPHATASE 240 IU/L (46-116); ANION GAP 12 (8-16); ASPARTATE AMINO TRANSFERASE 43 U/L (10-37); BILIRUBIN,TOTAL 0.5 MG/DL (0.1-1.0); BLOOD UREA NITROGEN 24 MG/DL (7-18); C-REACTIVE PROTEIN 1.37 MG/DL (0.0-0.5); CALCIUM 8.6 MG/DL (8.5-10.1); CHLORIDE 103 MMOL/L (99-107); CREATININE 0.75 MG/DL (0.40-0.90); GLUCOSE 190 MG/DL (70-104); LACTATE DEHYDROGENASE 275 U/L (81-234); MAGNESIUM 2.3 MG/DL (1.5-2.4); PHOSPHORUS 4.9 MG/DL (2.3-4.5); POTASSIUM 4.9 MMOL/L (3.5-5.1); SODIUM 138 MMOL/L (135-145); TOTAL CARBON DIOXIDE 23.2 MMOL/L (24-32); TOTAL PROTEIN 6.4 G/DL (6.4-8.2); eGFR 78 ML/MIN
[2021-09-05] MEDS: insulin Lispro (HumaLOG) vial - multi-dose SQ SCH ×2 (09:58→13:54)
[2021-09-05 10:00] VITALS: BP 134/66
[2021-09-05] MEDS ORDERED: DEXA6TAB PO (13:35)
--- NOTE | 2021-09-05 13:58 | NUR ---
O2 Sat at rest on room air:_89_% If below 89%: Recovery O2 Sat at rest on ___LPM:___%:___% via (mask/nasal cannula, etc..) No further documentation is necessary. If O2 Sat did not drop below 89% on room air,ambulate patient on room air. O2 Sat while ambulating on room air:_80__% Recovery O2 Sat while ambulating on _5_LPM:_89_% No further documentation is necessary. If patient does not drop below 89% while ambulating, he/she does not qualify for home O2.
[2021-09-05 14:00] VITALS: BP 119/61
[2021-09-05] MEDS: pneumococcal 23-VAL P-sac vacc 25 mcg/0.5ml vial IMVAC ONE (17:28)
[2021-09-05] MEDS: FLU VACC QS2021-22(6MOS UP)/PF 60 MCG/0.5 ML SYRINGE IM ONE (17:28)
--- NOTE | 2021-09-05 17:44 | NUR ---
D/C'D IV IN ANTICIPATION OF D/C OF PT. CANNULA INTACT, NO COMPLICATIONS
[2021-09-05 18:00] VITALS: BP 154/96
--- NOTE | 2021-09-05 18:18 | NUR ---
Patient in room [facility]TH[facility] 4017. I have received report from BRADFORD DIAZ and had the opportunity to ask questions and assume patient care.
--- NOTE | 2021-09-05 18:18 | NUR ---
Problems reprioritized. Patient report given, questions answered & plan of care reviewed with BRADFORD BAIG.
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
== END 2021-09-05 18:15 | disposition home or self-care (01) | DRG 137 ==
LOC: ER 15:56 → ED HOLD 18:10 → EDBEDREQ 20:13 → ORTHO 4S 21:00
PROVIDERS: ADMIT Internal Medicine; ATTEND Internal Medicine
PROC: XW033E5 Introduction of Remdesivir Anti-infective into Peripheral Vein, Percutaneous Approach, New Technology Group 5 (ICD-10-PCS; principal; 2021-08-25)
PROC: B32T1ZZ Computerized Tomography (CT Scan) of Left Pulmonary Artery using Low Osmolar Contrast (ICD-10-PCS; 2021-08-25)
PROC: B3201ZZ Computerized Tomography (CT Scan) of Thoracic Aorta using Low Osmolar Contrast (ICD-10-PCS; 2021-08-25)
PROC: B32S1ZZ Computerized Tomography (CT Scan) of Right Pulmonary Artery using Low Osmolar Contrast (ICD-10-PCS; 2021-08-25)
PROC: 5A0955A Assistance with Respiratory Ventilation, Greater than 96 Consecutive Hours, High Flow/Velocity Cannula (ICD-10-PCS; 2021-08-26)
DX: U07.1 COVID-19 (principal); J12.82 Pneumonia due to coronavirus disease 2019; J80 Acute respiratory distress syndrome; K76.0 Fatty (change of) liver, not elsewhere classified; E78.5 Hyperlipidemia, unspecified; E11.9 Type 2 diabetes mellitus without complications; F12.90 Cannabis use, unspecified, uncomplicated; I10 Essential (primary) hypertension; R10.10 Upper abdominal pain, unspecified; Z85.3 Personal history of malignant neoplasm of breast; Z88.2 Allergy status to sulfonamides; Z90.49 Acquired absence of other specified parts of digestive tract; Z98.891 History of uterine scar from previous surgery; Z59.00 Homelessness unspecified; Z56.0 Unemployment, unspecified
CPT/HCPCS: 36415; 36600; 71045; 71275; 76700; 80053; 80061; 82803; 82948; 82977; 83036; 83605; 83615; 83735; 84100; 84145; 84484; 85018; 85025; 85379; 86140; 86704; 86705; 86803; 87040; 87081; 87635; 90732; 93005; 93306; 94760; 96360; 97110; 97116; 97161; 97530; 99285; C9803; G0378; J0696; J1100; J1644; J1815; J2405; J7030; Q9967

== ENCOUNTER 2021-09-17 17:38 | Emergency (ER) | payer MEDICAID ==
[~2021-09-17] VITALS: Ht 157.5 cm; Wt 90.0 kg
[~2021-09-17 17:38] MED LIST changes: -AMLO5TAB4 PO; +DEXA6TAB PO; +ERTU5TAB PO; -INSU100V9 SQ; +LANTUS SQ; +LISI30TA4 PO; -SYRI-641
[2021-09-17 18:47] LABS: D-DIMER 0.22 MG/L FEU (0-0.50)
[2021-09-17 18:50] LABS: ALANINE AMINOTRANSFERASE 62 U/L (12-78); ALBUMIN 2.3 G/DL (3.4-5.0); ALBUMIN/GLOBULIN RATIO 0.5 (1.1-1.5); ALKALINE PHOSPHATASE 228 IU/L (46-116); ANION GAP 8 (8-16); ASPARTATE AMINO TRANSFERASE 23 U/L (10-37); BILIRUBIN,TOTAL 0.7 MG/DL (0.1-1.0); BLOOD UREA NITROGEN 18 MG/DL (7-18); BUN/CREATININE RATIO 28.1 (6.6-38.0); CALCIUM 8.3 MG/DL (8.5-10.1); CHLORIDE 101 MMOL/L (99-107); CREATININE 0.64 MG/DL (0.40-0.90); GLUCOSE 144 MG/DL (70-104); POTASSIUM 3.8 MMOL/L (3.5-5.1); SODIUM 138 MMOL/L (135-145); TOTAL CARBON DIOXIDE 28.7 MMOL/L (24-32); TOTAL PROTEIN 6.7 G/DL (6.4-8.2); eGFR > 90 ML/MIN
[2021-09-17 19:03] LABS: BASOPHILS % (AUTO) 0.1 % (0-1); EOSINOPHILS # (AUTO) 0.1 X10'3 (0-0.9); EOSINOPHILS % (AUTO) 0.8 % (0-6); HEMOGLOBIN 13.6 g/dl (12.0-16.0); LYMPHOCYTES # (AUTO) 0.7 X10'3 (1.1-4.8); LYMPHOCYTES % (AUTO) 4.7 % (21-51); MEAN CORPUSCULAR HEMOGLOBIN 25.6 PG (27.0-31.0); MEAN CORPUSCULAR HGB CONC 33.1 g/dL (33.0-36.5); MEAN CORPUSCULAR VOLUME 77.4 FL (78-98); MEAN PLATELET VOLUME 7.1 FL (7.4-10.4); MONOCYTES # (AUTO) 0.5 X10'3 (0-0.9); MONOCYTES % (AUTO) 3.5 % (2-12); NEUTROPHILS # (AUTO) 13.6 X10'3 (1.8-7.7); NEUTROPHILS % (AUTO) 90.9 % (42-75); PLATELET COUNT 291 X10'3 (140-440); RED CELL DISTRIBUTION WIDTH 13.8 % (11.5-14.5); WHITE BLOOD COUNT 14.9 X10'3 (4.5-11.0)
[2021-09-17] MEDS ORDERED: iohexol 350MG/ML 100ml bottle IV ONE (19:23)
[2021-09-17] MEDS ORDERED: NYST1000 PO (20:03)
--- NOTE | 2021-09-17 20:05 | NUR ---
PT ROOMED IN BED 8. TRIAGED PT. ASSUMED CARE OF PT.
[2021-09-17] MEDS ORDERED: fluconazole 150mg tablet PO ONE (21:55)
[2021-09-17 22:04] LABS: C-REACTIVE PROTEIN 4.35 MG/DL (0.0-0.5)
[2021-09-17] MEDS ORDERED: dexamethasone 4mg tablet PO ONE (22:15)
[2021-09-17 22:33] VITALS: BP 147/85
== END 2021-09-17 22:34 | disposition home or self-care (01) ==
LOC: ER 17:39
DX: U07.1 COVID-19 (principal); J12.82 Pneumonia due to coronavirus disease 2019; R06.02 Shortness of breath; R09.02 Hypoxemia; B37.0 Candidal stomatitis; I10 Essential (primary) hypertension; E11.9 Type 2 diabetes mellitus without complications; F12.90 Cannabis use, unspecified, uncomplicated; Z90.49 Acquired absence of other specified parts of digestive tract; Z87.891 Personal history of nicotine dependence; Z56.0 Unemployment, unspecified; Z59.00 Homelessness unspecified; Z98.891 History of uterine scar from previous surgery; Z98.890 Other specified postprocedural states; Z88.2 Allergy status to sulfonamides; Z79.4 Long term (current) use of insulin; Z79.899 Other long term (current) drug therapy
CPT/HCPCS: 36415; 71045; 71275; 80053; 83605; 84145; 85025; 85379; 86140; 87040; 93005; 99285; Q9967

== ENCOUNTER 2021-10-02 03:40 | Emergency (ER) | payer MEDICAID ==
[~2021-10-02] VITALS: Ht 157.5 cm; Wt 90.0 kg
[~2021-10-02 03:40] MED LIST changes: +NYST1000 PO
[2021-10-02] MEDS ORDERED: ondansetron/PF 4mg/2ml inj IV ONE (04:20)
[2021-10-02] MEDS ORDERED: normal saline 1000ML IV soln IVB ONE (04:20)
[2021-10-02 05:06] LABS: BASOPHILS % (AUTO) 0.1 % (0-1); EOSINOPHILS % (AUTO) 0.1 % (0-6); HEMATOCRIT 36.1 % (35.0-45.0); HEMOGLOBIN 11.8 g/dl (12.0-16.0); LYMPHOCYTES # (AUTO) 0.5 X10'3 (1.1-4.8); LYMPHOCYTES % (AUTO) 3.1 % (21-51); MEAN CORPUSCULAR HEMOGLOBIN 25.6 PG (27.0-31.0); MEAN CORPUSCULAR HGB CONC 32.8 g/dL (33.0-36.5); MEAN CORPUSCULAR VOLUME 78.1 FL (78-98); MEAN PLATELET VOLUME 6.7 FL (7.4-10.4); MONOCYTES # (AUTO) 0.6 X10'3 (0-0.9); MONOCYTES % (AUTO) 3.7 % (2-12); PLATELET COUNT 542 X10'3 (140-440); RED BLOOD COUNT 4.63 X10'6 (4.20-5.60); RED CELL DISTRIBUTION WIDTH 14.1 % (11.5-14.5)
[2021-10-02 05:10] LABS: ALANINE AMINOTRANSFERASE 32 U/L (12-78); ALBUMIN 1.9 G/DL (3.4-5.0); ALBUMIN/GLOBULIN RATIO 0.3 (1.1-1.5); ALKALINE PHOSPHATASE 210 IU/L (46-116); ANION GAP 11 (8-16); ASPARTATE AMINO TRANSFERASE 18 U/L (10-37); BILIRUBIN,TOTAL 0.5 MG/DL (0.1-1.0); BLOOD UREA NITROGEN 12 MG/DL (7-18); BUN/CREATININE RATIO 17.1 (6.6-38.0); CALCIUM 8.9 MG/DL (8.5-10.1); CHLORIDE 95 MMOL/L (99-107); GLUCOSE 184 MG/DL (70-104); POTASSIUM 3.4 MMOL/L (3.5-5.1); SODIUM 137 MMOL/L (135-145); TOTAL CARBON DIOXIDE 31.5 MMOL/L (24-32); TOTAL PROTEIN 7.8 G/DL (6.4-8.2); eGFR 85 ML/MIN
[2021-10-02 05:20] LABS: ETHANOL < 0.010 GM/DL (0.0-0.010)
[2021-10-02 05:21] LABS: ACETAMINOPHEN < 2.0 UG/ML (10-30)
[2021-10-02 05:22] LABS: URINE AMPHETAMINE SCREEN NEGATIVE (Neg); URINE BARBITUATE SCREEN NEGATIVE (Neg); URINE BENZODIAZEPINES SCREEN NEGATIVE (Neg); URINE CANNABINOID SCREEN NEGATIVE (Neg); URINE COCAINE SCREEN NEGATIVE (Neg); URINE METHADONE SCREEN NEGATIVE (Neg); URINE OPIATE SCREEN NEGATIVE (Neg); URINE PHENCYCLIDINE SCREEN NEGATIVE (Neg)
[2021-10-02] MEDS ORDERED: ketorolac trometh. 30mg/ml inj. IV ONE (05:30)
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
--- NOTE | 2021-10-02 06:53 | NUR ---
CONTACTED PT FOR RIDE ON DC. TO BE HERE IN 20 MIN.
[2021-10-02 06:54] VITALS: BP 148/86
[2021-10-02] MEDS ORDERED: ondansetron 4mg rapidly disintigrating tab PO ONE (07:35)
[2021-10-02] MEDS ORDERED: ONDA4TAB6 PO (07:36)
== END 2021-10-02 07:55 | disposition home or self-care (01) ==
LOC: ER 03:41
DX: U07.1 COVID-19 (principal); M54.2 Cervicalgia; R51.9 Headache, unspecified; R41.82 Altered mental status, unspecified; I10 Essential (primary) hypertension; E11.9 Type 2 diabetes mellitus without complications; F12.90 Cannabis use, unspecified, uncomplicated; Z56.0 Unemployment, unspecified; Z59.00 Homelessness unspecified; Z90.49 Acquired absence of other specified parts of digestive tract; Z98.891 History of uterine scar from previous surgery; Z98.890 Other specified postprocedural states; Z88.2 Allergy status to sulfonamides
CPT/HCPCS: 36415; 80053; 80305; 80320; 80329; 84443; 85025; 87635; 93005; 96361; 96374; 96375; 99284; C9803; J1885; J2405; J7030